=== PATIENT | male | born 1965 ===

== ENCOUNTER 2018-09-22 10:38 | Emergency (ER) | payer OTHER ==
[~2018-09-22] VITALS: Ht 175.3 cm; Wt 113.4 kg
[~2018-09-22 10:38] MED LIST: KETO10TA2 PO; MOTRIN800 MG PO; NABUMETONE500 MG PO; PERCOCET 5/3251 TAB PO
[2018-09-22] MEDS ORDERED: GLIMEPIRIDE4 MG PO (11:01)
[2018-09-22] MEDS ORDERED: FORTAMET1000 MG PO (11:01)
[2018-09-22] MEDS ORDERED: AVAPRO150 MG PO (11:02)
[2018-09-22] MEDS ORDERED: METOPROLOL TAR100 MG PO (11:02)
[2018-09-22] MEDS ORDERED: CARDURA1 MG PO (11:03)
[2018-09-22] MEDS ORDERED: NIFE60TA3 PO (11:03)
[2018-09-22] MEDS ORDERED: CATAPRES0.1 MG PO (21:13)
[2018-09-22] MEDS ORDERED: BUTALB-ACETAMI1 EACH PO (21:13)
== END 2018-09-22 21:59 | disposition home or self-care (01) ==
LOC: ER 10:38
DX: R51 Headache (principal); I10 Essential (primary) hypertension

== ENCOUNTER 2023-03-31 10:28 | Outpatient (CLI) | payer OTHER ==
[~2023-03-31 10:28] MED LIST changes: +AVAPRO150 MG PO; +BUTALB-ACETAMI1 EACH PO; +CARDURA1 MG PO; +CATAPRES0.1 MG PO; +FORTAMET1000 MG PO; +GLIMEPIRIDE4 MG PO; +METOPROLOL TAR100 MG PO; +NIFE60TA3 PO
== END 2023-03-31 10:56 | disposition home or self-care (01) ==
LOC: MRI 10:28
PROVIDERS: ATTEND Orthopaedic Surgery
DX: M25.561 Pain in right knee (principal); M25.562 Pain in left knee; S83.200A Bucket-handle tear of unspecified meniscus, current injury, right knee, initial encounter
CPT/HCPCS: 73718

== ENCOUNTER 2023-04-12 13:53 | Outpatient (CLI) | payer OTHER | END 2023-04-12 14:04 | disposition home or self-care (01) | LOC: RAD 13:53 | DX: C64.2 Malignant neoplasm of left kidney, except renal pelvis (principal) ==